=== PATIENT | male | born 1995 | race Caucasian/White ===

== ENCOUNTER 2021-07-17 11:07 | Emergency (ER) | payer OTHER, SELFPAY ==
[2021-07-17 11:45] VITALS: BP 124/86; PULSE 64; RESP 19; TEMP 36.9; O2SAT 99; BMI 23.7
--- NOTE | 2021-07-17 12:05 | HMH.EDUTC ---
[facility] [place] Disposition Clinical Impression: Psychiatric problem Disposition: Still a Patient Condition on Discharge: Fair Referrals: Provider,Referral, [Primary Care Provider] - Time of Disposition: 12:15 Medical Decision Making - Bk Inquiry Pt receiving controlled substance: No Bk was queried for this patient: No Vital Signs: 07/17/21 11:45 Temperature 98.5 F Temperature Source Oral Pulse Rate [Right Brachial] 64 Respiratory Rate 19 Blood Pressure [Right Arm] 124/86 Blood Pressure Mean [Right Arm] 98 Blood Pressure Source [Right Arm] Automatic Cuff Blood Pressure Position [Right Arm] Sitting 02 Sat by Pulse Oximetry 99 Oxygen Delivery Method Room Air Medical Decision Narrative: Mother concerned states that he has not been acting like himself Patient states that he is not sleeping and feels like his 'head is off States that he has been having thoughts of hurting himself and/or others but denies a plan and wants to get help Patient states that he feels like is brain is off and mother concerned that his medications are causing him to act like this Due to patient complaints and report of symptoms and thoughts patient to be moved to the ED for further evaluation Called ED spoke with Niharika Rn and patient was moved to room 9 [facility] [place] HPI - General Stated complaint: lack of sleep, anxiety, nausea Time Seen by Provider: 07/17/21 12:05 Mode of Arrival: Ambulatory Source of Information: Patient, Parent(s) Limitations: No Limitations Description of Symptoms (Recalled from Triage Doc. by RN): PATIENT C/O DEPRESSION, ANXIETY, DIFFICULTY SLEEPING, AND HEAD FEELING WEIRD X 1 YEAR, BUT IT HAS GOTTEN WORSE OVER THE PAST WEEK HEENT Symptoms (Recalled from RN notes): No Resp Symptoms (Recalled from RN notes): No Skin Symptoms (Recalled from RN notes): No MS Symptoms (Recalled from RN notes): No Functional Status (Recalled from RN notes): WNL - History of Present Illness Provider Complaint: Patient states that he is on leave from the [employer] [facility] State that he isnt feeling right in his head States that he is currently being treated for anxiety and depression State that he feels like his brain spasms at times States that he has not been sleeping and having thoughts of self harm and hurting others States that he just feels like his head is not right Mother state that he is not acting like his normal self and she thinks the medication is making him slower to respond to her than normal Patient states that symptoms have got worse over the last few days but he doesnt have any plans - Related Data Allergies Allergy/AdvReac Type Severity Reaction Status Date / Time chlorpheniramine Allergy Verified 07/17/21 12:05 [From Cardec (phenylephrin-chlorphn)] erythromycin base Allergy Verified 07/17/21 12:05 phenylephrine Allergy Verified 07/17/21 12:05 [From Cardec (phenylephrin-chlorphn)] - Worker's Comp Is this a Worker's Comp case?: No [facility] History - Hepatitis A Screen Attestation statement:: This patient has been screened for Hepatitis A risk factors. I have reviewed the patient's past medical history: Yes ROS Obtained: Yes All systems reviewed & no additional complaints, Yes Systems reviewed as appropriate & no additional complaints - Constitutional Constitutional: Reports system reviewed and no additional complaints, except as docu, Denies body ache, Denies chills, Denies fever(s), Denies headache(s) - Cardiovascular Cardiovascular: Reports system reviewed and no additional complaints, except as docu - Respiratory Respiratory: Reports system reviewed and no additional complaints, except as docu - Neurologic Neurologic: Reports system reviewed and no additional complaints, except as docu, Denies dizziness, Denies focal weakness, Denies headache(s), Denies seizure-like activity Comments: Patient reports head doesnt feel right worsening depression and having thoughts of self harm and/or
[2021-07-17 12:15] VITALS: BP 122/72; PULSE 56; RESP 16; O2SAT 100
--- NOTE | 2021-07-17 12:16 | HMH.EDANX ---
ED Disposition Clinical Impression: Psychiatric problem Disposition: Xfer Psychiatric Hosp Condition on Discharge: Fair Referrals: Provider,Referral, [Primary Care Provider] - - Critical Care Critical Care Time: No Attestation: On 07/17/21, the high probability of a clinically significant, sudden or life threatening deterioration of the following system(s) required my full and direct attention, intervention and personal management. The time I documented below is in addition to time spent performing reported procedures but includes the following listed in this critical care notation. Medical Decision Making - Medical Records Medical records reviewed: Yes: I reviewed the patient's medical records. - Bk Inquiry Pt receiving controlled substance: No Vital Signs: 07/17/21 11:45 07/17/21 12:15 07/17/21 12:19 Temperature 98.5 F 98.1 F Temperature Source Oral Oral Pulse Rate 56 L Pulse Rate [Right Brachial] 64 49 L Respiratory Rate 19 16 18 Blood Pressure 122/72 Blood Pressure [Right Arm] 124/86 122/72 Blood Pressure Mean [Right Arm] 98 88 Blood Pressure Source Blood Pressure Source [Right Arm] Automatic Cuff Automatic Cuff Blood Pressure Position Blood Pressure Position [Right Arm] Sitting Sitting 02 Sat by Pulse Oximetry 99 100 98 Oxygen Delivery Method Room Air Room Air Room Air 07/17/21 13:25 07/17/21 14:29 Temperature Temperature Source Pulse Rate 84 Pulse Rate [Right Brachial] 74 Respiratory Rate 16 16 Blood Pressure 122/70 Blood Pressure [Right Arm] 126/84 Blood Pressure Mean [Right Arm] 98 Blood Pressure Source Automatic Cuff Blood Pressure Source [Right Arm] Automatic Cuff Blood Pressure Position Sitting Blood Pressure Position [Right Arm] Sitting 02 Sat by Pulse Oximetry 98 100 Oxygen Delivery Method Room Air Room Air - Lab Data Lab results reviewed: Yes: I reviewed the patient's lab results. Lab Results 07/17/21 12:17: Urine Color Yellow, Urine Appearance Clear, Urine pH 7.5, Ur Specific [place] 1.010, Urine Protein Negative, Urine Glucose (UA) Negative, Urine Ketones Negative, Urine Blood Negative, Urine Nitrate Negative, Urine Bilirubin Negative, Urine Urobilinogen 0.2, Ur Leukocyte Esterase Negative, Urine RBC None, Urine WBC None, Ur Squamous Epith Cells None, Urine Bacteria None 07/17/21 12:40: WBC 4.7 L, RBC 5.05, Hgb 15.8, Hct 45.7, MCV 90.4, MCH 31.4 H, MCHC 34.7, RDW 13.4, Plt Count 205, MPV 8.0, Neut % (Auto) 59.4, Lymph % (Auto) 32.0, [place] % (Auto) 6.7, Eos % (Auto) 0.8, Baso % (Auto) 1.1, Neut # (Auto) 2.8, Lymph # (Auto) 1.5, [place] # (Auto) 0.3, Eos # (Auto) 0.0, Baso # (Auto) 0.1 07/17/21 12:40: Sodium 140, Potassium 4.2, Chloride 104, Carbon Dioxide 30, Anion Gap 10.2, BUN 14, Creatinine 1.10, Estimated Creat Clear 112, Estimated GFR 80, Est GFR ( Amer) 97, Glucose 98, Calcium 9.3, Total Bilirubin 0.8, AST 18, ALT 14, Alkaline Phosphatase 39, Total Protein 7.1, Albumin 4.3, Globulin 2.8, Albumin/Globulin Ratio 1.5 07/17/21 12:40: TSH 2.14, Free T4 Index 3.1 L, Thyroxine (T4) 8.7, T3 Uptake 36 07/17/21 15:48: Urine Opiates Screen Negative, Urine Methadone Screen Negative, Ur Barbituates Screen Negative, Ur Phencyclidine Scrn Negative, Ur Amphetamines Screen Negative, U Benzodiazepines Scrn Negative, Urine Cocaine Screen Negative, U Marijuana (THC) Screen Negative 07/17/21 16:59: SARS-CoV-2 (PCR) Not detected, Influenza A Untype (PCR) Not detected, Influenza Type B (PCR) Not detected Result diagrams: 07/17/21 12:40 07/17/21 12:40 Orders (Tests/Meds): ED MEDICATIONS Discontinued Medications Generic Name Dose Route Start Last Admin Trade Name Freq PRN Reason Stop Dose Admin Acetaminophen 500 mg 07/17/21 14:58 07/17/21 14:59 Acetaminophen 500mg Tab PO 07/17/21 14:59 500 mg ONCE ONE Administration - ECG Data Tracing #1 I reviewed this ECG and interpreted as documented below: The patient is EKG was performe
[2021-07-17 12:19] VITALS: BP 122/72; PULSE 49; RESP 18; TEMP 36.7; O2SAT 98; BMI 22.8
--- NOTE | 2021-07-17 12:45 | PC.NURSE ---
Calling Emerald Vidales. Voicemail left
--- NOTE | 2021-07-17 12:57 | ECG_ITS ---
APPROVED REPORT Exam: Resting ECG HR:49 bpm ECG Measurements Heart Rate 49 AXES IA 146 P 67 QRSd 102 QRS 91 QT 425 T 64 QTc 395 Conclusion SINUS BRADYCARDIA BORDERLINE RIGHT AXIS DEVIATION [QRS AXIS > 90] BORDERLINE ECG UNCONFIRMED REPORT Electronically signed by : Marco A Tom MD 07/18/2021 21:09:49
[2021-07-17 13:05] LABS: Basophils # 0.1 K/mm3 (0-0.2); Basophils % 1.1 % (0.1-2.0); Eosinophils % 0.8 % (0.1-12.0); Hematocrit 45.7 % (42.0-52.0); Hemoglobin 15.8 g/dL (14.1-18.0); Lymphocytes # 1.5 K/mm3 (0.7-4.5); Mean Corpuscular HGB Conc 34.7 g/dL (31.8-35.4); Mean Corpuscular Hemoglobin 31.4 pg (27.0-31.2); Mean Corpuscular Volume 90.4 fl (80-94); Monocytes # 0.3 K/mm3 (0.1-1.0); Monocytes % 6.7 % (1.7-9.3); Neutrophils # 2.8 K/mm3 (1.8-7.8); Neutrophils % 59.4 % (37.0-80.0); Platelet Count 205 K/mm3 (142-424); Red Blood Count 5.05 M/mm3 (4.60-6.20); Red Cell Distribution Width 13.4 % (11.5-17.5); White Blood Count 4.7 K/mm3 (4.8-10.8)
[2021-07-17 13:11] LABS: Alanine Aminotransferase 14 U/L (12-78); Albumin Level 4.3 g/dl (3.5-5.0); Albumin/Globulin Ratio 1.5 (1.1-1.8); Alkaline Phosphatase 39 U/L (38-126); Anion Gap 10.2 mEq/L (5-15); Aspartate Amino Transferase 18 U/L (17-59); Bilirubin,Total 0.8 mg/dl (0.2-1.3); Blood Urea Nitrogen 14 mg/dl (9-20); Calcium 9.3 mg/dl (8.4-10.2); Carbon Dioxide 30 mmol/L (22.0-30.0); Chloride 104 mmol/L (98-107); Creatinine Clearance Estimated 112 mL/min (50-200); Estimated Glomerular Filt Rate 80 ml/min (>60); GFR (African American) 97 ML/MIN (>60); Globulin 2.8 g/dL (1.3-3.2); Glucose 98 mg/dl (74-100); Potassium 4.2 mmoL/L (3.5-5.1); Sodium 140 mmol/L (136-145); Total Protein,Serum 7.1 g/dl (6.3-8.2)
--- NOTE | 2021-07-17 13:13 | PC.NURSE ---
Nurse called Emerald Thomas's office and no answer.
--- NOTE | 2021-07-17 13:19 | PC.NURSE ---
Spoke with Emerald Vidales, advised she would be down to see the patient later this afternoon. Spoke with pt and mother and let them know that she would be down later this afternoon if they were ok with waiting to see her. Both were agreeable with POC. Pt provided with drink at this time, no other needs.
[2021-07-17 13:25] VITALS: BP 126/84; PULSE 74; RESP 16; O2SAT 98
[2021-07-17 13:41] LABS: Triiodothryronine (T3) Uptake 36 % (23.5-40.5)
[2021-07-17 13:42] LABS: Free Thyroxine Index 3.1 ug/dL (5.93-13.13); T4 (Thyroxine) 8.7 ug/dl (5.53-11.0)
[2021-07-17 13:56] LABS: Thyroid Stimulating Hormone 2.14 uIU/mL (0.465-4.68)
[2021-07-17 14:29] VITALS: BP 122/70; PULSE 84; RESP 16; O2SAT 100
--- NOTE | 2021-07-17 14:29 | PC.NURSE ---
Rounded on patient at this time. No new needs. Pt up to restroom
--- NOTE | 2021-07-17 15:35 | PC.NURSE ---
Leslie called [facility] to check on status of Emerald coming down to see patient, advised they would give her the message
--- NOTE | 2021-07-17 15:42 | PC.NURSE ---
Updated pt and family member on POC
[2021-07-17 15:54] LABS: Microscopic, Urine URINE MICROSCOPIC (MICROSCOPIC)
[2021-07-17 15:57] LABS: Appearance,Urine CLEAR (Clear); Bilirubin,Urine Negative (Negative); Blood, Urine Negative (Negative); Color,Urine YELLOW (Yellow); Glucose,Urine (UA) Negative (Negative); Ketones,Urine Negative (Negative); Leukocyte Esterase,Urine Negative (Negative); Nitrate,Urine Negative (Negative); PH,Urine 7.5 (5.0-8.5); Protein,Urine Negative (Negative); Urobilinogen,Urine 0.2 EU/dl (0.2)
[2021-07-17 16:07] LABS: Benzodiazepines Screen,Urine Negative ng/ml (<200)
[2021-07-17 16:08] LABS: Amphetamine/Metha Screen,Urine Negative ng/ml (<1000)
[2021-07-17 16:09] LABS: Barbiturates Screen,Urine Negative ng/ml (<200); Cannabinoid Screen,Urine Negative ng/ml (<50)
[2021-07-17 16:10] LABS: Cocaine Screen,Urine Negative ng/ml (<300); Methadone Screen,Urine Negative ng/ml (<300)
[2021-07-17 16:11] LABS: Opiate Screen,Urine Negative ng/ml (<300)
[2021-07-17 16:12] LABS: Phencyclidine Screen,Urine Negative ng/ml (<25)
--- NOTE | 2021-07-17 16:16 | PC.NURSE ---
Emerald Vidales called to advises that she is coming to ED to consult with pt
--- NOTE | 2021-07-17 16:30 | PC.NURSE ---
Emerald Vidales at BS
--- NOTE | 2021-07-17 16:57 | PC.NURSE ---
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
--- NOTE | 2021-07-17 17:00 | HMH.BHCONS ---
*Admission Date: 07/17/21 *Reason for consult:: anxiety; negative thoughts *History of present illness: Consulted to the ER for anxiety and negative thoughts. -patient was interviewed in ER bay 9 -his mother was at the bedside with him She brought him to the [facility] today; cause he states that he doesn't feel right. -they sent him over to the ER -he states that he is here to 'get my head checked out' -that he has negative thoughts and they aren't right -this has happened to him before; the negative thoughts He is very flat. Emotionless. When responding to questions; he is very slow to respond. Looks at you as if looking right through you. Very guarded. Mom states that he has been like this for about the past 3 years. Started when there was issues with his marriage. -they have been for 3 years -she has moved on -he hasn't -they didn't not have kids -no contact with her currently He is currently in the . 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 07/26/2021 PER HIS REPORT: -he feels something is wrong with his brain -he wants an MRI -mom says they did this in [place] when he was there; and it was negative and cleared for anything medical -he says that his body hurts; and he just stays in [address] place all the time -he did not move the entire time in interview today -he has had negative thoughts for a while -sluggish to answer like this for a while; years mom says -he was in the hospital in [place] several times for his per mom's report -he was diagnosed as paranoid schizophrenia in [place] -no family history of this -he does have SI thoughts -most recent was today -he states that he wants to live; but not like this -that he is so tired of feeling like this -no plan earlier today -never attempted SI; never gathered things in preparation -He does CURRENTLY have homicidal thoughts -he does not want to talk about this -mom says that he has struggled with this before; when stationed in [place] -he would not answer if this was a specific person or just homicide in general -he does report auditory hallucinations -when asked what they say to him; again he answers that he 'can't talk about this' I did talk to him about going inpatient. -he states that he feels he needs to be in the hospital -he is willing to go -states that he knows he needs help -that the way he is feeling is not normal -mom agrees what this would be the best plan for him -instructed them that he will be going to [facility] RECOMMENDATIONS: 1. Petition to [facility] on a 72 hour old. 2. He can follow-up as an outpatient client in [facility] TIME IN: 1614 TIME OUT: 1644 [facility] History *Have you ever received a pneumonia vaccine?: No *Have you received a flu vaccine this season?: Yes - *Social History Smoking Status: Unknown if ever smoked Alcohol Intake: never *Occupational Status:: other (recently medically discharged from the [employer]) *Travel in the last 8 weeks: Inside the [facility] (He came back from [place] on 07/11/2021) Family Hx:: Unable to obtain Review of Systems - Review of Systems Review of systems:: other (did not assess) - *Neurologic Denies dizziness, Denies localized weakness, Denies headache(s), Denies seizure-like activity Meds Allergies Allergy/AdvReac Type Severity Reaction Status Date / Time chlorpheniramine Allergy Verified 07/17/21 12:05 [From Cardec (phenylephrin-chlorphn)] erythromycin base Allergy Verified 07/17/21 12:05 phenylephrine Allergy Verified 07/17/21 12:05 [From Cardec (phenylephrin-chlorphn)]
--- NOTE | 2021-07-17 17:03 | PC.NURSE ---
Spoke with Koby Brannon, who advised we could fill out the forms and email them to him. JOLEEN Be filling out forms at this time
[2021-07-17 17:05] LABS: Coronavirus 19, PCR Not Detected (NotDetected); Influenza A, PCR Not Detected (NotDetected); Influenza B, PCR Not Detected (NotDetected)
--- NOTE | 2021-07-17 17:21 | PC.NURSE ---
[phone] Filled out and email to [email or web address]
--- NOTE | 2021-07-17 17:47 | PC.NURSE ---
[facility] has been called about patient
--- NOTE | 2021-07-17 18:15 | PC.NURSE ---
Spoke to Officer Mercer with [employer] about transport to [facility] for pt. Due to pt being a [place] resident, he states that he believes SO will transport. Officer Mercer to return call with more information on who to expect to transport pt.
--- NOTE | 2021-07-17 18:26 | PC.NURSE ---
Received call from [employer] stating that [place] [facility] office will return our call to gain info on request to transport pt.
--- NOTE | 2021-07-17 18:30 | PC.NURSE ---
[facility] Christopher Webb stated that [facility] [place] [facility] will need to transport pt to [facility].
--- NOTE | 2021-07-17 18:32 | PC.NURSE ---
Officer Sylvie with [employer] returned call and stated that he will contact the [facility] to inform them of pt transport to [facility]. Advised that if he has any issues, he will return our call.
[2021-07-17 18:53] VITALS: BP 118/70; PULSE 50; RESP 14; TEMP 36.7; O2SAT 99
--- NOTE | 2021-07-17 18:58 | PC.NURSE ---
Pt D/C'd with [facility] in route to [facility]
== END 2021-07-17 18:58 ==
LOC: UTC 11:29 → ER 12:08
PROVIDERS: Emergency Provider Emergency Medicine
DX: F99 Mental disorder, not otherwise specified (principal); F41.9 Anxiety disorder, unspecified; G47.00 Insomnia, unspecified; Z88.8 Allergy status to other drugs, medicaments and biological substances
CPT/HCPCS: 80053; 80305; 81001; 84436; 84443; 84479; 85025; 93005; 99284; C9803; U0003; U0005

== ENCOUNTER 2023-10-29 15:29 | Emergency (ER) | payer OTHER, SELFPAY ==
[2023-10-29 15:40] VITALS: BP 126/74; PULSE 79; RESP 19; TEMP 36.8; O2SAT 100; BMI 29.0
--- NOTE | 2023-10-29 16:24 | ED_ITS ---
Discharge Plan Disposition Patient Disposition: Home, Self-Care Condition: Good Prescriptions Prescriptions: New amoxicillin 875 mg tablet 875 mg PO Q12H Qty: 20 0RF methylprednisolone 4 mg Tablets,Dose Pack 4 mg PO DIRECTED 6 Days Qty: 21 0RF Rx Instructions: Take 1 pack as directed for 6 days No Action olanzapine 5 mg Tablet 5 mg PO DAILY lorazepam 2 mg Tablet 4 mg PO DAILY PRN (Reason: Anxiety) Referrals Follow up/Referrals: Provider,Referral, MD [Primary Care Provider] - See instructions Activity Restrictions/Add. Instructions Additional Instructions/Restrictions: Drink plenty of fluids. Take tylenol or ibuprofen for pain or fever. Take the medications as directed. Follow up with your regular doctor. GO TO THE ER FOR ANY WORSENING SYMPTOMS Clinical Impressions Clinical Impression: Sinusitis, Acute viral syndrome Instructions Patient Instructions: Sinusitis, DI for Sinusitis Print Language Print Language: Ugandan Discharge ED Provider: Tone Escobedo [facility] General Stated complaint: sore throat,cough,congestion,runny nose Mode of Arrival: Ambulatory Source of Information: Patient Limitations: No Limitations Time Seen by Provider: 10/29/23 15:59 Description of Symptoms (Recalled from Triage Doc. by RN): PATIENT C/O FEVER, HEADACHE, SORE THROAT THIS MORNING, SINUS PAIN AND PRESSURE, AND RUNNY NOSE THAT STARTED YESTERDAY HEENT Symptoms (Recalled from RN notes): Yes Resp Symptoms (Recalled from RN notes): No Skin Symptoms (Recalled from RN notes): No MS Symptoms (Recalled from RN notes): No Functional Status (Recalled from RN notes): WNL Related Data Home Medications ?Medication ?Instructions ?Recorded ?Confirmed lorazepam 2 mg tablet 4 mg PO DAILY PRN Anxiety 10/29/23 10/29/23 olanzapine 5 mg tablet 5 mg PO DAILY 10/29/23 10/29/23 Previous Rx's ?Medication ?Instructions ?Recorded amoxicillin 875 mg tablet 875 mg PO Q12H #20 tabs 10/29/23 methylprednisolone 4 mg tablets in 4 mg PO DIRECTED 6 days #21 tabs 10/29/23 a dose pack Allergies Allergy/AdvReac Type Severity Reaction Status Date / Time chlorpheniramine Allergy Verified 07/17/21 12:05 [From Cardec (phenylephrin-chlorphn)] erythromycin base Allergy Verified 07/17/21 12:05 phenylephrine Allergy Verified 07/17/21 12:05 [From Cardec (phenylephrin-chlorphn)] Worker's Comp Is this a Worker's Comp case?: No [facility] Disclaimer: The information contained in this section may have been updated after the patient was seen, as this information can be updated by other users. Medical History (Updated 10/29/23 @ 16:34 by Tone Escobedo APRN) Depression Anxiety Surgical History (Updated 10/29/23 @ 15:55 by Lynsey Chirinos RN) History of tonsillectomy Social History Smoking Status: Unknown if ever smoked alcohol intake: never current occupational status: other (recently medically discharged from the [employer]) Travel in the last 8 weeks: Inside the [facility] (He came back from [place] on 07/11/2021) ROS Obtained: Yes All systems reviewed & no additional complaints except as documented Constitutional Constitutional: Reports poor appetite Eyes Eyes: Reports system reviewed and no additional complaints, except as documented ENT Ears, Nose, Mouth, and Throat: Reports as per HPI Cardiovascular Cardiovascular: Reports system reviewed and no additional complaints, except as documented and Denies chest pain Respiratory Respiratory: Denies shortness of breath, Denies chest congestion, Reports cough, Denies stridor and Denies wheezing Gastrointestinal Gastrointestingal: Reports system reviewed and no additional complaints, except as documented; Denies abdominal pain, diarrhea or vomiting Musculoskeletal Musculoskeletal: Reports system reviewed and no additional complaints, except as documented and Denies arthralgias Integumentary/Breasts Skin/Breast: Reports system reviewed and no additional complaints, except as documented and Denies rash Neurologic Neurologic: Denies paresthesias Allergic/Immunologic Allergic/Immunologic: Denies wheezing Physical Exam General General appearance: alert and in no apparent distress Eye Eye exam: Present normal appearance, PERRL and EOMI ENT ENT exam: Present mucous membranes moist and normal external ear exam Expanded ENT Exam External ear exam: Present normal external inspection TM/Canal exam: Bilateral TM: erythema and bulging Nose exam: Absent sinus tenderness Nasal speculum exam: Bilateral: normal Mouth exam: Present normal external inspection; Absent drooling Teeth exam: Present normal inspection Throat exam: Present tonsillar erythema and tonsillomegaly Neck Neck exam: Present normal inspection, full ROM and trachea midline; Absent tenderness, lymphadenopathy or thyromegaly Chest Chest inspection: Present normal inspection and symmetric chest wall rise; Absent tenderness or rash Respiratory Respiratory exam: Present normal lung sounds bilaterally; Absent respiratory distress, wheezes, stridor or accessory muscle use Cardiovascular Cardiovascular exam: Present regular rate, normal rhythm and normal heart sounds Abdominal Exam Abdominal exam: Present soft; Absent distention, tenderness, guarding, rebound or rigidity Extremities Exam Extremities exam: Present normal inspection, full ROM and normal capillary refill; Absent tenderness or calf tenderness Back Exam Back exam: Present normal inspection and full ROM; Absent tenderness Neurological Exam Neurological exam: Present alert and oriented X3 Psychiatric Psychiatric exam: Present normal affect and normal mood Skin Skin exam: Present warm, dry, intact and normal color Lymphatic Lymphatic Findings: no adenopathy Medical Decision Making Medical Records Medical records reviewed: No I reviewed the patient's medical records. Bk Inquiry Pt receiving controlled substance: No Vital Signs: 10/29/23 15:40 Temperature 98.3 F Temperature Source Oral Pulse Rate [Left Brachial] 79 Respiratory Rate 19 Blood Pressure [Left Arm] 126/74 Blood Pressure Mean [Left Arm] 91 Blood Pressure Source [Left Arm] Automatic Cuff Blood Pressure Position [Left Arm] Sitting 02 Sat by Pulse Oximetry 100 Oxygen Delivery Method Room Air
[2023-10-29 16:37] VITALS: BP 126/74; PULSE 79; RESP 19; TEMP 36.8; O2SAT 100
== END 2023-10-29 16:39 | disposition home or self-care (01) ==
PROVIDERS: Emergency Provider Nurse Practitioner Family
DX: U07.1 COVID-19 (principal); J01.90 Acute sinusitis, unspecified; R51.9 Headache, unspecified; R50.9 Fever, unspecified; R07.0 Pain in throat
CPT/HCPCS: 87635; 99204; 99212; G0463

== ENCOUNTER 2024-08-05 12:11 | Emergency (ER) | payer OTHER, SELFPAY ==
[2024-08-05 12:19] VITALS: BP 158/91; PULSE 75; RESP 20; TEMP 36.7; O2SAT 99; BMI 30.9
--- NOTE | 2024-08-05 12:28 | HMH.EDGENADL ---
Discharge Plan Disposition Patient Disposition: Home, Self-Care Prescriptions Prescriptions: No Action olanzapine 5 mg Tablet 5 mg PO DAILY lorazepam 2 mg Tablet 4 mg PO DAILY PRN (Reason: Anxiety) amoxicillin 875 mg tablet 875 mg PO Q12H Qty: 20 0RF methylprednisolone 4 mg Tablets,Dose Pack 4 mg PO DIRECTED 6 Days Qty: 21 0RF Rx Instructions: Take 1 pack as directed for 6 days Referrals Follow up/Referrals: Deric Mathews II, MD [Staff Physician, Gastroenterology] - See instructions Provider,ReferralMD [Primary Care Provider] - See instructions Clinical Impressions Clinical Impression: Abdominal pain Instructions Patient Instructions: Acute Abdominal Pain Print Language Print Language: Tunisian Discharge ED Provider: Aj Briggs General Adult HPI <Alana Sinha APRN - Last Filed: 08/06/24 12:08> General Chief complaint: Nausea/Vomiting/Diarrhea Stated complaint: vomiting daily 2mnths, nausea diarrhea Time Seen by Provider: 08/05/24 12:23 History of Present Illness HPI narrative: Roge Kapadia is a 29-year-old male who presents emergency room tonight with complaints of nausea, vomiting, diarrhea for 2 months. States his diarrhea has worsened over the last week. Reports that he has a mix of liquid and normal stools. Reports at least 3 bowel movements per day. Reports intermittent emesis, NBNB. Sometimes happens when he eats in the morning. Sometimes happens before he eats. Denies any marijuana or illicit drug use. Has never had an endoscopy or colonoscopy in the past. No history of diabetes or gastroparesis. Does state he has had some medication changes, states that he was taken off of his olanzapine recently. Does have an extensive psychiatric history, has been diagnosed with paranoid schizophrenia. Not reporting any hallucinations at this time. No SI or HI. Still has his gallbladder and appendix. No prior abdominal surgeries. States he wants to get his stomach checked out today . Denies any abdominal pain. No nausea or vomiting at this time. Does tell me that he thinks he had a fever last night took some Aleve for it. Has not had any vomiting today. Denies any chest pain, shortness of breath. No current complaints at this time. Please note that the above description of symptoms, and this electronic medical record under categorization of recalled from ER triage doctor by RN are reflective of an initial nursing assessment, however, is not reflective of my full history and physical exam that was personally taken and clarified. Consequentially, this proceeding description of symptoms, which may include the patient's cauterized chief complaint in the EMR, do not reflect my personal clinical impression, and the ultimate description of the history of present illness stated complaints should be deferred to this section of this note. Unless stated otherwise were congruent with the section of the note, additional signs, symptoms, or incongruence can be interpreted as in or accurate with my clinical impression. Related Data Home Medications ?Medication ?Instructions ?Recorded ?Confirmed lorazepam 2 mg tablet 4 mg PO DAILY PRN Anxiety 10/29/23 10/29/23 olanzapine 5 mg tablet 5 mg PO DAILY 10/29/23 10/29/23 Previous Rx's ?Medication ?Instructions ?Recorded amoxicillin 875 mg tablet 875 mg PO Q12H #20 tabs 10/29/23 methylprednisolone 4 mg tablets in 4 mg PO DIRECTED 6 days #21 tabs 10/29/23 a dose pack Allergies Allergy/AdvReac Type Severity Reaction Status Date / Time chlorpheniramine (From Allergy Verified 07/17/21 12:05 Cardec (phenylephrin-chlorphn)) erythromycin base Allergy Verified 07/17/21 12:05 phenylephrine (From Cardec Allergy Verified 07/17/21 12:05 (phenylephrin-chlorphn)) [facility] <Alana Sinha APRN - Last Filed: 08/06/24 12:08> [facility] Disclaimer: The information contained in this section may have been updated after the patient was seen, as this information can be updated by other users. Medical History (Updated 08/05/24 @ 13:46 by Catalino Levin RN) Depression Anxiety Surgical History (Updated 10/29/23 @ 15:55 by Lynsey Chirinos RN) History of tonsillectomy Social History Smoking Status: Current every day smoker alcohol intake: never current occupational status: other (recently medically discharged from the [employer]) Travel in the last 8 weeks?: Inside the [facility] (He came back from [place] on 07/11/2021) Have you lived/traveled outside US in past 30 days?: No Contact w/someone who lives/traveled outside US past 30 days?: No Exposure to someone with infectious disease in past 14 days?: No Do you have a fever (greater than 100.4 F or 38 C)?: No Have you tested positive for COVID-19?: No Exposed to someone with COVID-19 in past 14 days?: No Do you have a sore throat?: No Do you have a cough?: No Do you have any weakness?: No Do you have any diarrhea?: Yes Are you experiencing any unusual bleeding?: No Do you have any muscle aches/pain?: No Do you have any abdominal pain?: No Are you experiencing loss of taste or smell?: No Other Medical History Have you received the Flu Vaccine for this season: Yes Have you received the Pneumonia Vaccine: No <Alana Sinha PREPARATION ROOM MANAGER - Last Filed: 08/06/24 12:08> ROS Obtained: Yes Systems reviewed as appropriate & no additional complaints except as documented Physical Exam <Alana Sinha PREPARATION ROOM MANAGER - Last Filed: 08/06/24 12:08> General General appearance: alert and in no apparent distress Head Head exam: atraumatic and normocephalic Eye Eye exam: Present PERRL (Pupils are very dilated, equal round reactive) and EOMI Chest Chest inspection: Present symmetric chest wall rise Respiratory Respiratory exam: Present normal lung sounds bilaterally Cardiovascular Cardiovascular exam: Present regular rate and normal rhythm Abdominal Exam Abdominal exam: Present soft and normal bowel sounds; Absent tenderness Extremities Exam Extremities exam: Present full ROM Neurological Exam Neurological exam: Present alert and oriented X3 Skin Skin exam: Present warm, dry and intact Medical Decision Making <Alana Sinha PREPARATION ROOM MANAGER - Last Filed: 08/06/24 12:08> Medical Records Screening: Per USPSTF and CDC recommendations, given the prevalence of disease in our region, it is our hospital?s policy to screen for HIV and viral Hepatitis for all patients aged 18 and over and those with ongoing risk factors. Bk Inquiry Pt receiving controlled substance: No Vital Signs: 08/05/24 12:19 08/05/24 13:43 Temperature 98.1 F 98.2 F Temperature Source Oral Pulse Rate 76 Pulse Rate [Left] 75 Respiratory Rate 20 18 Blood Pressure 156/91 H Blood Pressure [Right Arm] 158/91 H Blood Pressure Mean [Right Arm] 113 Blood Pressure Source Automatic Cuff Blood Pressure Source [Right Arm] Automatic Cuff Blood Pressure Position Sitting Blood Pressure Position [Right Arm] Sitting 02 Sat by Pulse Oximetry 99 Oxygen Delivery Method Room Air Room Air Lab Data Lab Results 08/05/24 12:25: WBC 5.4, RBC 5.48, Hgb 15.9, Hct 47.6, MCV 86.9, MCH 29.0, MCHC 33.4, RDW 12.1, Plt Count 245, MPV 9.3, Neut % (Auto) 66.6, Lymph % (Auto) 24.9, [place] % (Auto) 7.3, Eos % (Auto) 0.4, Baso % (Auto) 0.6, Neut # (Auto) 3.6, Lymph # (Auto) 1.3, [place] # (Auto) 0.4, Eos # (Auto) 0.0, Baso # (Auto) 0.0, Sodium 140, Potassium 4.3, Chloride 104, Carbon Dioxide 29, Anion Gap 11.3, BUN 15, Creatinine 1.20, Estimated GFR 71, Est GFR ( Amer) 86, Glucose 113 H, Calcium 9.4, Total Bilirubin 0.7, AST 28, ALT 39, Alkaline Phosphatase 61, Total Protein 8.1, Albumin 4.7, Globulin 3.4 H, Albumin/Globulin Ratio 1.4, Lipase 46, HCV Ab NERIS w/Rflx PCR Qn Negative, HIV Ag/Ab Combo Qual Negative 08/05/24 13:28: Urine Color Yellow, Urine Appearance Clear, Urine pH 7.0, Ur Specific [place] 1.010, Urine Protein Negative, Urine Glucose (UA) Negative, Urine Ketones Negative, Urine Blood Negative, Urine Nitrate Negative, Urine Bilirubin Negative, Urine Urobilinogen 0.2, Ur Leukocyte Esterase Negative, Urine RBC None, Urine WBC None, Ur Squamous Epith Cells None, Urine Bacteria Trace, Urine Opiates Screen Negative, Urine Methadone Screen Negative, Ur Barbituates Screen Negative, Ur Phencyclidine Scrn Negative, Ur Amphetamines Screen Negative, U Benzodiazepines Scrn Negative, Urine Cocaine Screen Negative, U Marijuana (THC) Screen Negative 08/05/24 12:25 08/05/24 12:25 Orders (Tests/Meds): ORDERS Category Date Time Status CBC w/Auto Diff [Complete Blood Count Auto Diff] Stat Lab 08/05/24 12:25 Completed CMP [Comprehensive Metabolic Panel] Stat Lab 08/05/24 12:25 Completed HIV Combo Stat Lab 08/05/24 12:25 Completed Hepatitis C Ab Qual. W/ RFX Stat Lab 08/05/24 12:25 Completed Lipase Stat Lab 08/05/24 12:25 Completed UA [Urinalysis and Microscopic] Stat Lab 08/05/24 13:28 Completed UDS [Drug Screen,Urine] Stat Lab 08/05/24 13:28 Completed Medical Decision Narrative: In summary patient is an 29-year-old male who presents emergency department for evaluation of nausea, vomiting, diarrhea x 2 months. Patient not currently nauseated, no abdominal pain at this time. Has not had a bowel movement today, no episodes of vomiting today. Patient is hemodynamically stable upon arrival, afebrile. Unremarkable physical exam, no tenderness to palpation on his abdomen pupils are very dilated, equal round and reactive. Differential diagnosis includes enteritis versus appendicitis versus pancreatitis. Initial workup will be conducted with hematologic labs including a CBC, CMP, lipase. I considered ordering a CT of the abdomen but patient does not have any abdominal pain at this time. Will reassess the need for CT of the abdomen once lab work comes back.. Initial interventions include will give p.o. challenge once lab work comes back. Patient currently not nauseated at this time, not requiring any antiemetics. Initial workup reviewed by me hematologic labs essentially unremarkable. Urinalysis and UDS unremarkable. Upon repeat evaluation patient continued to be pain-free, had no nausea, no episodes of vomiting, no diarrhea at this time.. Given this, patient is appropriate for discharge. I will give him a follow-up referral to see her GI specialist Dr. Mathews. Patient was given strict return precautions to return to the ER should his condition worsen. <Aj Briggs MD - Last Filed: 08/14/24 23:04> Vital Signs: 08/05/24 12:19 08/05/24 13:43 Temperature 98.1 F 98.2 F Temperature Source Oral Pulse Rate 76 Pulse Rate [Left] 75 Respiratory Rate 20 18 Blood Pressure 156/91 H Blood Pressure [Right Arm] 158/91 H Blood Pressure Mean [Right Arm] 113 Blood Pressure Source Automatic Cuff Blood Pressure Source [Right Arm] Automatic Cuff Blood Pressure Position Sitting Blood Pressure Position [Right Arm] Sitting 02 Sat by Pulse Oximetry 99 Oxygen Delivery Method Room Air Room Air Lab Data Lab Results 08/05/24 12:25: WBC 5.4, RBC 5.48, Hgb 15.9, Hct 47.6, MCV 86.9, MCH 29.0, MCHC 33.4, RDW 12.1, Plt Count 245, MPV 9.3, Neut % (Auto) 66.6, Lymph % (Auto) 24.9, [place] % (Auto) 7.3, Eos % (Auto) 0.4, Baso % (Auto) 0.6, Neut # (Auto) 3.6, Lymph # (Auto) 1.3, [place] # (Auto) 0.4, Eos # (Auto) 0.0, Baso # (Auto) 0.0, Sodium 140, Potassium 4.3, Chloride 104, Carbon Dioxide 29, Anion Gap 11.3, BUN 15, Creatinine 1.20, Estimated GFR 71, Est GFR ( Amer) 86, Glucose 113 H, Calcium 9.4, Total Bilirubin 0.7, AST 28, ALT 39, Alkaline Phosphatase 61, Total Protein 8.1, Albumin 4.7, Globulin 3.4 H, Albumin/Globulin Ratio 1.4, Lipase 46, HCV Ab NERIS w/Rflx PCR Qn Negative, HIV Ag/Ab Combo Qual Negative 08/05/24 13:28: Urine Color Yellow, Urine Appearance Clear, Urine pH 7.0, Ur Specific [place] 1.010, Urine Protein Negative, Urine Glucose (UA) Negative, Urine Ketones Negative, Urine Blood Negative, Urine Nitrate Negative, Urine Bilirubin Negative, Urine Urobilinogen 0.2, Ur Leukocyte Esterase Negative, Urine RBC None, Urine WBC None, Ur Squamous Epith Cells None, Urine Bacteria Trace, Urine Opiates Screen Negative, Urine Methadone Screen Negative, Ur Barbituates Screen Negative, Ur Phencyclidine Scrn Negative, Ur Amphetamines Screen Negative, U Benzodiazepines Scrn Negative, Urine Cocaine Screen Negative, U Marijuana (THC) Screen Negative Orders (Tests/Meds): ORDERS Category Date Time Status CBC w/Auto Diff [Complete Blood Count Auto Diff] Stat Lab 08/05/24 12:25 Completed CMP [Comprehensive Metabolic Panel] Stat Lab 08/05/24 12:25 Completed HIV Combo Stat Lab 08/05/24 12:25 Completed Hepatitis C Ab Qual. W/ RFX Stat Lab 08/05/24 12:25 Completed Lipase Stat Lab 08/05/24 12:25 Completed UA [Urinalysis and Microscopic] Stat Lab 08/05/24 13:28 Completed UDS [Drug Screen,Urine] Stat Lab 08/05/24 13:28 Completed Medical Decision Narrative: In summary patient is an 29-year-old male who presents emergency department for evaluation of nausea, vomiting, diarrhea x 2 months. Patient not currently nauseated, no abdominal pain at this time. Has not had a bowel movement today, no episodes of vomiting today. Patient is hemodynamically stable upon arrival, afebrile. Unremarkable physical exam, no tenderness to palpation on his abdomen pupils are very dilated, equal round and reactive. Differential diagnosis includes enteritis versus appendicitis versus pancreatitis. Initial workup will be conducted with hematologic labs including a CBC, CMP, lipase. I considered ordering a CT of the abdomen but patient does not have any abdominal pain at this time. Will reassess the need for CT of the abdomen once lab work comes back.. Initial interventions include will give p.o. challenge once lab work comes back. Patient currently not nauseated at this time, not requiring any antiemetics. Initial workup reviewed by me hematologic labs essentially unremarkable. Urinalysis and UDS unremarkable. Upon repeat evaluation patient continued to be pain-free, had no nausea, no episodes of vomiting, no diarrhea at this time.. Given this, patient is appropriate for discharge. I will give him a follow-up referral to see her GI specialist Dr. Mathews. Patient was given strict return precautions to return to the ER should his condition worsen. I was consulted by the [facility], and we discussed the complexity of the problems being addressed. I approved the treatment and management plan for this patient's care in the Emergency Department, thus performing a substantive portion of the medical decision making. Aj Briggs MD Critical Care <Alana Sinha APRN - Last Filed: 08/06/24 12:08> Critical Care Time Critical Care Time: No
[2024-08-05 12:35] LABS: Basophils % 0.6 % (0.1-2.0); Eosinophils % 0.4 % (0.1-12.0); Hematocrit 47.6 % (42.0-52.0); Hemoglobin 15.9 g/dL (14.1-18.0); Immature Granulocytes # 0.01 10^3uL; Immature Granulocytes % 0.2 %; Lymphocytes # 1.3 K/mm3 (0.7-4.5); Lymphocytes % 24.9 % (10-50); Mean Corpuscular HGB Conc 33.4 g/dL (31.8-35.4); Mean Corpuscular Volume 86.9 fl (80-94); Mean Platelet Volume 9.3 fl (7.4-10.4); Monocytes # 0.4 K/mm3 (0.1-1.0); Monocytes % 7.3 % (1.7-9.3); Neutrophils # 3.6 K/mm3 (1.8-7.8); Neutrophils % 66.6 % (37.0-80.0); Nucleated Red Blood Cells # 0 10^3/uL; Nucleated Red Blood Cells % 0 %; Platelet Count 245 K/mm3 (142-424); Red Blood Count 5.48 M/mm3 (4.60-6.20); Red Cell Distribution Width 12.1 % (11.5-17.5); Red Cell Distribution Width-SD 38.7 fL; White Blood Count 5.4 K/mm3 (4.8-10.8)
[2024-08-05 12:45] LABS: Albumin Level 4.7 g/dl (3.5-5.0); Chloride 104 mmol/L (98-107); Sodium 140 mmol/L (136-145)
[2024-08-05 12:46] LABS: Potassium 4.3 mmoL/L (3.5-5.1)
[2024-08-05 12:48] LABS: Alanine Aminotransferase 39 U/L (12-78); Albumin/Globulin Ratio 1.4 (1.1-1.8); Alkaline Phosphatase 61 U/L (38-126); Anion Gap 11.3 mEq/L (5-15); Aspartate Amino Transferase 28 U/L (17-59); Bilirubin,Total 0.7 mg/dl (0.2-1.3); Blood Urea Nitrogen 15 mg/dl (9-20); Carbon Dioxide 29 mmol/L (22.0-30.0); Estimated Glomerular Filt Rate 71 ml/min (>60); GFR (African American) 86 ML/MIN (>60); Globulin 3.4 g/dL (1.3-3.2); Total Protein,Serum 8.1 g/dl (6.3-8.2)
[2024-08-05 12:49] LABS: Calcium 9.4 mg/dl (8.4-10.2); Glucose 113 mg/dl (74-100); Lipase 46 U/L (23-300)
[2024-08-05 13:32] LABS: Microscopic, Urine URINE MICROSCOPIC (MICROSCOPIC)
[2024-08-05 13:38] LABS: Appearance,Urine CLEAR (Clear); Bilirubin,Urine Negative (Negative); Blood, Urine Negative (Negative); Color,Urine YELLOW (Yellow); Glucose,Urine (UA) Negative (Negative); Ketones,Urine Negative (Negative); Leukocyte Esterase,Urine Negative (Negative); Nitrate,Urine Negative (Negative); Protein,Urine Negative (Negative); Urobilinogen,Urine 0.2 EU/dl (0.2)
[2024-08-05 13:43] VITALS: BP 156/91; PULSE 76; RESP 18; TEMP 36.8; O2SAT 97
[2024-08-05 13:50] LABS: Bacteria,Urine Trace /lpf
[2024-08-05 13:52] LABS: Barbiturates Screen,Urine Negative ng/ml (<200)
[2024-08-05 13:53] LABS: Amphetamine/Metha Screen,Urine Negative ng/ml (<1000); Benzodiazepines Screen,Urine Negative ng/ml (<200)
[2024-08-05 13:54] LABS: Methadone Screen,Urine Negative ng/ml (<300)
[2024-08-05 13:55] LABS: Cannabinoid Screen,Urine Negative ng/ml (<50); Cocaine Screen,Urine Negative ng/ml (<300)
[2024-08-05 13:56] LABS: Opiate Screen,Urine Negative ng/ml (<300); Phencyclidine Screen,Urine Negative ng/ml (<25)
[2024-08-05 21:26] LABS: HIV Combo NEGATIVE (Negative)
[2024-08-05 21:34] LABS: Hepatitis C Ab Qual. W/ RFX NEGATIVE (Negative)
== END 2024-08-05 13:51 | disposition home or self-care (01) ==
PROVIDERS: Nurse Practitioner Acute Care; Emergency Provider Emergency Medicine
DX: R10.9 Unspecified abdominal pain (principal); Z11.59 Encounter for screening for other viral diseases; Z11.4 Encounter for screening for human immunodeficiency virus [HIV]
CPT/HCPCS: 80053; 80307; 81001; 83690; 85025; 86803; 87389; 99283

== ENCOUNTER 2024-12-19 14:52 | Emergency (ER) | payer OTHER, SELFPAY ==
[2024-12-19 14:54] VITALS: BP 186/118; PULSE 81; RESP 18; TEMP 36.8; O2SAT 100; BMI 31.6
--- OUTSIDE RECORDS SUMMARY | 2024-12-19 15:15 | XMS_ITS | Data Portability ---
Author Organization [place] [place] [facility] Address [address] [place] [address] Assessment No assessment recorded. Plan of Treatment Reminders Order Date Submit Date Provider Last Modified By Organization Details Last Modified Time Details Appointments None recorded. Lab None recorded. Referral None recorded. Procedures None recorded. Surgeries None recorded. Imaging None recorded. Medication Orders Ozempic 0.25 mg or 0.5 mg (2 mg/1.5 mL) subcutaneou s pen injector 2024 025 [facility], [address] [place] [address], [address], 15:56:10 Lybalvi 15 mg-10 mg tablet 2024 025 [facility], [address] [place] [address], [address], 16:52:11 naltrexone 50 mg tablet 2024 025 [facility], [address] [place] [address], [address], 16:17:43 Patient TargetsNo targets recorded. Patient Instructions Encounter Date Encounter Id Patient Instructions Last Modified By Organization Details Last Modified Time 08/27/2024 [id number] MHI Packet Adult [email or web address] Not availabl e 08/27/2024 12:46:14 Reason for Referral None Reported. Problems Name Problem SNOMED Code Status Onset Date Resolution Date Notes Provider Name and Address Organization Details Recorded Time Schizophrenic disorders 252773473 Active 2024 Sees [place] for this Bernice moore [employer] 5 11:28:31 Anxiety 48414258 Active 2024 [facility] SAMIA Griffiths [employer] 5 11:28:44 Recurrent major depressive episodes 829377014 Active 2024 Sees [place] for [place] Bernice moore [employer] 11:29:17 Problem Notes None recorded. Procedures Surgical History Date Name Laterality Status Provider Name and Address Organization Details Recorded Time Tonsillectomy completed Bernice GRACIA [employer], [employer] 08/27/2024 11:08:12 Imaging Results None recorded. Procedure Notes None recorded. Medical Equipment None Reported. Allergies No known drug allergies Medications Name Sig Start Date Stop Date Status Note LastModified by Organization Details LastModified Time citalopram 10 mg tablet Take 1 tablet every day by oral route. active pt is unsure on doseage , [facility] Not [facility] Not Available Not Available naltrexone 50 mg tablet TAKE ONE TABLET BY MOUTH TWICE DAILY active Not Available Not Available No t Available olanzapine 10 mg tablet Take 1 tablet every day by oral route. active pt is unsure on doseage , gets from [facility] Not Available Not Available Not Available amoxicilli n 875 mg tablet TAKE 1 TABLET BY MOUTH EVERY 12 HOURS FOR 10 DAYS 08/27 completed Not Available Not Available Not Available lorazepam 1 mg tablet Take 1 tablet 3 times a day by oral route. active pt is unsure on doseage , gets [facility] Not Available Not Available Not Available methylpred nisolone 4 mg tablets in a dose pack TAKE BY MOUTH DIRECTED ON INSIDE OF PACKAGE 08/27 completed Not Available Not Available Not Available Prilosec OTC 20 mg tablet,del ayed release Take 1 tablet every day by oral route. active Not Available Not Available No t Available Ozempic 0.25 mg or 0.5 mg (2 mg/1.5 mL) subcutaneo us pen injector inject 0.25mg SQ q week x4 weeks, then inject 0.5mg SQ q week 2024 active Not Available Not Available Not Avai lable Lybalvi 15 mg-10 mg tablet TAKE ONE TABLET BY MOUTH EVERY DAY 11/17 completed Not Available Not Available Not Available Ozempic 0.25 mg or 0.5 mg (2 mg/3 mL) subcutaneo us pen injector Inject by subcutan eous route for 56 days. active Not Available Not Available No t Available Cobenfy 100 mg-20 mg capsule TAKE 1 CAPSULE BY MOUTH TWICE DAILY 08/27 completed Not Available Not Available Not Available Cobenfy 50 mg-20 mg capsule TAKE 1 CAPSULE BY MOUTH TWICE DAILY 08/27 completed Not Available Not Available Not Available Vitals Date Recorded Body height Body mass index (BMI) Body weight Heart rate Oxygen saturation Oxygen saturation in Arterial blood by Pulse oximetry Systolic And Diastolic Provider Name and Address Organization Details Last Updated DateTime 185.42 cm 31.4 kg/m2 347095. 08 g 70 /min 97 % 97 % 134/88 mm[Hg] Bernice Dalton [employer] 11:32:26 Date Recorded Body height Body mass index (BMI) Body weight Heart rate Oxygen saturation Oxygen saturation in Arterial blood by Pulse oximetry Systolic And Diastolic Provider Name and Address Organization Details Last Updated DateTime 185.42 cm 33 kg/m2 559117. 49 g 80 /min 96 % 96 % 133/88 mm[Hg] Bernice Dalton [employer] 16:06:30 Social History Question Answer Notes LastModified by Organizat ion Details LastModified Time Tobacco Smoking Status Former Smoker Bernice moore [employer]. 08/27/2024 11:08:12 Do You Have An Advance Directive? No Information not available 08/27/2024 Is Your Home Air Conditioned? Yes Information not available 08/27/2024 Do You Wear A Helmet When Biking? No Information not available 08/27/2024 Are You Blind Or Do You Have Difficulty Seeing? No Information not available 08/27/2024 What Is Your Level Of Caffeine Consumption? Moderate Information not available 08/27/2024 What Type Of Academic Affairs Assistant Do You Use? None Information not available 08/27/2024 Are You Deaf Or Do You Have Serious Difficulty Hearing? No Information not available 08/27/2024 How Many Days Of Moderate To Strenuous Exercise, Like A Brisk Walk, Did You Do In The Last 7 Days? 3 Information not available 08/27/2024 Have There Been Any Changes To Your Family Or Social Situation? No Information no t available 08/27/2024 When Did You Quit Smoking? 1-5yearssince lastcigarette Information not available 08/27/2024 Are There Any Guns Present In Your Home? No Information not available 08/27/2024 Which Of Your Hands Is Dominant? Right Information not available 08/27/2024 What Is Your Home Situation? Both Parents Information not available 08/27/2024 Do You Have A Medical Power Of Shotgun Shell Loading Machine Operator? No Information not available 08/27/2024 What Was The Date Of Your Most Recent Tobacco Screening? 11/17/2024 Information not available 11/17/2024 What Is Your Current Pack Years? 10packyears Information not available 08/27/2024 Do You Have Any Pets? Yes Information not available 08/27/2024 What Is Your Relationship Status? Information not available 08/27/2024 Have You Repeated Any Grades? Yes Information not available 08/27/2024 Do You Use Your Seat Belt Or Car Seat Routinely? Yes Information not available 08/27/2024 Are You Sexually Active? No Information not available 08/27/2024 Do You Have Any Siblings? Two Information not available 08/27/2024 Do You Have Smoke And Carbon Monoxide Detectors In Your Home? Yes Information not available 08/27/2024 Are You Passively Exposed To Smoke? No Information no t available 08/27/2024 Are There Any Smokers In Your House? No Information not available 08/27/2024 How Much Tobacco Do You Smoke? No Information not available 08/27/2024 Do You Use Sunscreen Routinely? No Information not available 08/27/2024 Do You Have Difficulty Walking Or Climbing Stairs? No Information not available 08/27/2024 Sex: Unknown Functional Status Question Answer Note LastModified by Organizat ion Details LastModified Time How many times per week do you consume alcohol? 5-7 times per week Information not available 08/27/2024 Do you use any illicit or recreational drugs? No Information not available 08/27/2024 What is your level of alcohol consumption? Heavy Information not available 08/27/2024 Are you currently employed? No Information not available 08/27/2024 Are you able to walk independently without assistance or assistive devices? YESWOREST Information not available 08/27/2024 Do you have difficulty doing errands alone? No Information not available 08/27/2024 Are you able to care for yourself independently? Yes Information not available 08/27/2024 Do you have difficulty dressing, bathing, grooming, or toileting? No Information not available 08/27/2024 What is your exercise level? Occasional Information not available 08/27/2024 Mental Status Question Answer Note LastModified by Organization D etails LastModified Time Do you have difficulty concentrating, remembering or making decisions? No Information no t available 08/27/2024 Are you or have you been involved with bullying? No Information not available 08/27/2024 Family History Nothing Reported. Medical History Condition Response Depression Y Anxiety Disorder Y Immunizations Vaccine Type Date Status Note Provider Nam e and Address Organization Details Recorded Time MMR 6 completed Not Available [facility] 11/17/2024 15:59:51 DTP-Hib 6 completed Not Available [facility] 11/17/2024 15:59:51 Hep B, unspecified formulation 6 completed Not Available [facility] 11/17/2024 15:59:51 varicella 7 completed Not Available [facility] 11/17/2024 15:59:51 DTaP, unspecified formulation 9 completed Not Available [facility] 11/17/2024 15:59:51 MMR 9 completed Not Available [facility] 11/17/2024 15:59:51 OPV, trivalent 9 completed Not Available [facility] 11/17/2024 15:59:51 Tdap 7 completed Not Available [facility] 11/17/2024 15:59:51 COVID-19, mRNA, LNP-S, PF, 100 mcg/0.5mL dose or 50 mcg/0.25mL dose 2 completed Not Available [facility] 11/17/2024 15:59:51 Influenza, MDCK, quadrivalent, PF 2 completed Not Available [facility] 11/17/2024 15:59:51 Influenza, split virus, quadrivalent, PF 3 completed Not Available [facility] 11/17/2024 15:59:51 Past Encounters Encounter ID Performer Location Encounter Start Date Encounter Closed Date Diagnosis/Indication Diagnosis SNOMED-CT Code Diagnosis ICD10 Code Diagnosis IMO Codes Diagnosis Note [id number] [place] [address] 08/27/2024 11:05:42 08/27/2024 12:21:06 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 F10.10 50447 Auditory hallucinations 21731570 R44.0 21723 Gastroesop hageal reflux disease without esophagitis 636970345 K21.9 444376 Body mass index 30+ - obesity 252048680 Z68.31 294766 [id number] Violette Vila[address] 0 11/17/2024 15:58:57 11/17/2024 17:09:05 Obesity 381952427 E66.9 74480900 Harmful pa ttern of use of alcohol 71071378 F10.10 55223 Body mass index 30+ - obesity 229971204 Z68.33 088230 Health Concerns Section Related Observation LastModified by Organization Detai ls LastModified Time None Recorded Concern Status LastModified by Organization Details LastModified Time None Recorded Advance Directives Directive N: Payers Insurance Date Sequence Insurance Name Policy Number Policy Pereyra Covered Member ID Pereyra Member ID Guarantor Name 11/18/2024 1 FOR LIFE () Roge Kapadia [id number] Roge Kapadia 08/27/2024 1 *SELF PAY* Ramon Kapadia Notes Date Note Type Note Provider Name and Address Organization Details Recorded Time 08/27/2024 text/html pt here today to est pcp. pt [facility]. states that he would like to get treatment for ETOH abuse. states that he has been drinking at least 6 beers/day for years. states that he also hears voices . states that he doesnt hear them daily but he has for years. states that he heard them before he started drinking. denies being prescribed any medication as a child or teenager for this. pt states that the voices tell him to hurt himself or other people. pt states that he has never acted on these voices. pt states that he still hears the voices even with the medication and that it hasnt gotten better. states that he has been taking the olanzapine for around 2 years and the voices hasnt gotten better. states that the only med that helps him is the lorazepam. talked with dr martel and she suggested to start pt on lybalvi 15mg and stop the olanzapine. pt does not want the shot for ETOH abuse but the oral. naltrexone 50 bid. start the lybalvi first then wait a couple days to start naltrexone. spoke with deshawn in pharmacy. pt to return in 1 month. pt is to bring back MHI packet when he picks up his meds. Violette Vila APRN [address] [facility], [place], [address], [facility] [employer] 08/27/2024 13:01:37 11/17/2024 text/html pt here today requesting ozempic to help with wt loss. pt states that he has been trying to diet and exercise. states that he has been drinking alot of water. i explained to pt that insurance typically doesnt approve those type of medications unless pt is a diabetic. pt voiced understanding. told pt that it may be a good idea to draw labs and check labwork. pt declined today and states i know i dont have diabetes because i dont eat sugar . i told pt that i can try and send it in but it is probably going to be denied. pt voiced understanding. i asked pt if he is still taking the naltrexone because he didnt come back for his 1 month f/u. pt states that he is not still taking it, that he is now taking [facility] states that [facility] not [facility] (pt did not ever bring back MHI packet) and states that he still continues to drink ETOH daily. pt is very solium, hands have a tremor, takes a while for pt to answer questions. Violette Vila APRN [address] [place] [address], [place], [address], [facility] [employer] 11/17/2024 16:46:32
--- OUTSIDE RECORDS SUMMARY | 2024-12-19 15:15 | XMS_ITS | Continuity of Care Document ---
Author Organization [employer] [facility] Address [address] [place] [id number] Assessment No assessment recorded. Plan of Treatment Reminders Order Date Submit Date Provider Last Modified By Organization Details Last Modified Time Details Appointments None recorded. Lab None recorded. Referral None recorded. Procedures None recorded. Surgeries None recorded. Imaging None recorded. Medication Orders Ozempic 0.25 mg or 0.5 mg (2 mg/1.5 mL) subcutaneou s pen injector 2024 025 [facility], [address] [place] [address], [address], 15:56:10 Patient TargetsNo targets recorded. Patient InstructionsNo instructions recorded. Reason for Referral None Reported. Problems Name Problem SNOMED Code Status Onset Date Resolution Date Notes Provider Name and Address Organization Details Recorded Time Schizophrenic disorders 759794743 [facility]24 [facility] Bernice Thompsony oscar [employer] 11:28:31 Anxiety 98732710 Active 2024 [facility] Bernice Irene [employer], [employer] 11:28:44 Recurrent major depressive episodes 739541869 Active 2024 [facility] Bernice Ellsworthallie moore [employer] 11:29:17 Problem Notes None recorded. Procedures Surgical History Date Name Laterality Status Provider Name and Address Organization Details Recorded Time Tonsillectomy completed Bernicecally Dalton [employer], [facility] 08/27/2024 11:08:12 Imaging Results None recorded. Procedure [...] Last Updated DateTime 185.42 cm 33 kg/m2 309306. 49 g 80 /min 96 % 96 % 133/88 mm[Hg] Bernice Dalton [employer] 16:06:30 Social History Question Answer Notes LastModified by Organizat ion Details LastModified Time Tobacco Smoking Status Former Smoker Bernicecally Dalton oscar [employer] 08/27/2024 11:08:12 Do You Have An Advance [...] Information not available 08/27/2024 What Type Of Cash Management Associate Do You Use? None Information not available [...] Do You Have A Medical Power Of Pharmaceutical Laboratory Technician? No Information not available 08/27/2024 What Was [...] History Nothing Reported. Medical History Condition Response Anxiety Disorder Y Depression Y Immunizations Vaccine Type Date Status Note Provider Nam e and Address Organization Details Recorded Time MMR 6 completed Not Available [facility] 11/17/2024 15:59:51 DTP-Hib 6 completed Not Available [facility] 11/17/2024 15:59:51 Hep B, unspecified formulation 6 completed Not Available [facility] 11/17/2024 15:59:51 varicella 7 completed Not Available [facility] 11/17/2024 15:59:51 DTaP, unspecified formulation 9 completed Not Available [facility] 11/17/2024 15:59:51 MMR 9 completed Not Available [facility] 11/17/2024 15:59:51 OPV, trivalent 9 completed Not Available [facility] 11/17/2024 15:59:51 Tdap 7 completed Not Available [facility] 11/17/2024 15:59:51 COVID-19, mRNA, LNP-S, PF, 100 mcg/0.5mL dose or 50 mcg/0.25mL dose 2 completed Not Available [facility] 11/17/2024 15:59:51 Influenza, MDCK, quadrivalent, PF 2 completed Not Available [facility] 11/17/2024 15:59:51 Influenza, split virus, quadrivalent, PF 3 completed Not Available [facility] 11/17/2024 15:59:51 Past Encounters Encounter ID Performer Location Encounter Start Date Encounter Closed Date Diagnosis/Indication Diagnosis SNOMED-CT Code Diagnosis ICD10 Code Diagnosis IMO Codes Diagnosis Note [id number] Violette Stone, HOSPITAL AIDE [address] [place] [address] 11/17/2024 15:58:57 11/17/2024 17:09:05 Obesity 775325804 E66.9 82805341 Harmful pa ttern of use of alcohol 24688889 F10.10 13191 Body mass index 30+ - obesity 720625152 Z68.33 243000 Health Concerns Section Related Observation LastModified by Organization Detai ls LastModified Time None Recorded Concern Status LastModified by Organization Details LastModified Time None Recorded Payers Encounter Date Sequence Insurance Name Policy Number Policy Pereyra Covered Member ID Pereyra Member ID Guarantor Name 11/17/2024 1 FOR LIFE () Roge Boonejudy [id number] Roge Kapadia Notes Date Note Type Note Provider Name and Address Organization Details Recorded Time 11/17/2024 text/html pt here today requesting ozempic [...] taking l[facility]ep[facility] that is [facility]. states that he is not doing any [facility] the [facility] (pt did not ever bring back MHI packet) and states that he still continues to drink ETOH daily. pt is very solium, hands have a tremor, takes a while for pt to answer questions. Violette Vila APRN [address] [facility], [place], [address], [facility] - [employer] 11/17/2024 16:46:32
[2024-12-19] MEDS: LIDOCAINE 1% 10ML MDV 10 ML SUBCUT (15:46)
[2024-12-19] MEDS: TET/DIPHTH/PERT-ADULT 0.5ML SYRINGE 0.5 ML IM (15:48)
--- NOTE | 2024-12-19 16:15 | HMH.EDGENADL ---
Discharge Plan Disposition Patient Disposition: Home, Self-Care Condition: Good Prescriptions Prescriptions: No Action olanzapine 5 mg Tablet 5 mg PO DAILY lorazepam 2 mg Tablet 4 mg PO DAILY PRN (Reason: Anxiety) amoxicillin 875 mg tablet 875 mg PO Q12H Qty: 20 0RF methylprednisolone 4 mg Tablets,Dose Pack 4 mg PO DIRECTED 6 Days Qty: 21 0RF Rx Instructions: Take 1 pack as directed for 6 days Referrals Follow up/Referrals: Provider,Referral, MD [Primary Care Provider, Medical] - See instructions Activity Restrictions/Add. Instructions Additional Instructions/Restrictions: Please put bacitracin ointment on your wound daily. You can wash your stitches with warm soap and water. Do not submerge the laceration underneath water; no lakes, pools, ponds, or hot tubs. If you develop streaking redness or drainage of pus please come back to the emergency department promptly. If you develop diffuse swelling of the forearm with limitation of movement of the hands or fingers please also return to the emergency department. Otherwise I want you to see your primary care doctor, urgent care, or the emergency department in 7 to 10 days to have stitches removed Clinical Impressions Clinical Impression: Forearm laceration Qualifiers: Encounter type: initial encounter Laterality: left Qualified Code(s): S51.812A - Laceration without foreign body of left forearm, initial encounter Instructions Patient Instructions: DI for Laceration Repair Print Language Print Language: Liberian Discharge ED Provider: Leroy Horton Adult HPI General Chief complaint: Wound/Laceration Stated complaint: A/O 12/18 cut in left arm Time Seen by Provider: 12/19/24 15:13 Mode of Arrival: Ambulatory Source of Information: Patient Description of Symptoms (Recalled from ER Triage Doc. by RN): patient presents to the ED for a laceration to the left forearm after working on a fourwheeler. patient stated this happened last night but the bleeding just wont stop. History of Present Illness HPI narrative: Is a 29-year-old male patient, with no significant past medical history, who is presented to the emergency department today for evaluation of a left forearm laceration. Patient states that he was working with a 4 haas and lacerated his arm on a piece of metal attached to the 4 haas. He states that he has not had any difficulty with movement of his fingers or sensory deficits in the fingers or forearm. He states the wound has been relatively hemostatic since it occurred. Related Data Home Medications ?Medication ?Instructions ?Recorded ?Confirmed lorazepam 2 mg tablet 4 mg PO DAILY PRN Anxiety 10/29/23 10/29/23 olanzapine 5 mg tablet 5 mg PO DAILY 10/29/23 10/29/23 Previous Rx's ?Medication ?Instructions ?Recorded amoxicillin 875 mg tablet 875 mg PO Q12H #20 tabs 10/29/23 methylprednisolone 4 mg tablets in 4 mg PO DIRECTED 6 days #21 tabs 10/29/23 a dose pack Allergies Allergy/AdvReac Type Severity Reaction Status Date / Time chlorpheniramine (From Allergy Verified 07/17/21 12:05 Cardec (phenylephrin-chlorphn)) erythromycin base Allergy Verified 07/17/21 12:05 phenylephrine (From Cardec Allergy Verified 07/17/21 12:05 (phenylephrin-chlorphn)) [facility] Disclaimer: The information contained in this section may have been updated after the patient was seen, as this information can be updated by other users. Medical History (Updated 12/19/24 @ 16:15 by Leroy Horton DO) Depression Anxiety Surgical History (Updated 10/29/23 @ 15:55 by Lynsey Chirinos RN) History of tonsillectomy Social History Smoking Status: Never smoker alcohol intake: never current occupational status: other (recently medically discharged from the [place]) Travel in the last 8 weeks?: Inside the [facility] (He came back from [place] on 07/11/2021) Have you lived/traveled outside US in past 30 days?: No Contact w/someone who lives/traveled outside US past 30 days?: No Exposure to someone with infectious disease in past 14 days?: No Do you have a fever (greater than 100.4 F or 38 C)?: No Have you tested positive for COVID-19?: No Exposed to someone with COVID-19 in past 14 days?: No Do you have a sore throat?: No Do you have a cough?: No Do you have any weakness?: No Do you have any diarrhea?: No Are you experiencing any unusual bleeding?: No Do you have any muscle aches/pain?: No Do you have any abdominal pain?: No Are you experiencing loss of taste or smell?: No Other Medical History Have you received the Flu Vaccine for this season: Yes Have you received the Pneumonia Vaccine: No ROS Obtained: Yes Systems reviewed as appropriate & no additional complaints except as documented Physical Exam General General appearance: other (See MDM) Respiratory Respiratory exam: Present other (See MDM) Cardiovascular Cardiovascular exam: Present other (See MDM) Neurological Exam Neurological exam: Present other (See MDM) Medical Decision Making Medical Records Medical records reviewed: Yes I reviewed the patient's medical records. Screening: Per USPSTF and CDC recommendations, given the prevalence of disease in our region, it is our hospital?s policy to screen for HIV and viral Hepatitis for all patients aged 18 and over and those with ongoing risk factors. Bk Inquiry Pt receiving controlled substance: No Bk was queried for this patient: No Vital Signs: 12/19/24 14:54 Temperature 98.2 F Temperature Source Oral Pulse Rate [Right Radial] 81 Respiratory Rate 18 Blood Pressure [Right Arm] 186/118 H Blood Pressure Mean [Right Arm] 140 Blood Pressure Source [Right Arm] Automatic Cuff Blood Pressure Position [Right Arm] Sitting 02 Sat by Pulse Oximetry 100 Oxygen Delivery Method Room Air Orders (Tests/Meds): ED MEDICATIONS Generic Name Dose Route Start Last Admin Trade Name Freq PRN Reason Stop Dose Admin Bacitracin 1 gm 12/19/24 16:14 Bacitracin Zinc Oint 30gm Tube TP 12/19/24 16:15 ONCE ONE Discontinued Medications Generic Name Dose Route Start Last Admin Trade Name Freq PRN Reason Stop Dose Admin Lidocaine HCl 10 ml 12/19/24 15:39 12/19/24 15:46 Lidocaine 1% 10ml Mdv SUBCUT 12/19/24 15:40 10 ml ONCE ONE Administration Tetanus/Reduced Diphtheria/Acell Pertussis 0.5 ml 12/19/24 15:33 12/19/24 15:48 Tet/Diphth/Pert-Adult 0.5ml Syringe IM 12/19/24 15:34 0.5 ml .ONCE ONE Administration Medical Decision Narrative: In summary this is a 29-year-old male patient who is presented to the emergency department today for evaluation of a left forearm laceration. This occurred from a piece of metal that was attached to a 4 haas. This patient has no comorbidities that would complicate their medical management or care. On initial evaluation of the patient they were resting comfortably in no acute distress and nontoxic in appearance. They are hemodynamically stable, saturating well room air, and are neurologically intact. On physical examination the patient has a 2 cm laceration on the volar aspect of the mid forearm. The wound margins are gaping but the wound is not very deep. I have cleaned this wound out with 1 L of saline and explored the wound depth and margins. There is no violation of muscle or tendon. Wound is hemostatic. Most likely differential is laceration. 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 I have repaired the patient's laceration with 1% lidocaine for analgesia and 4-0 nylon suture. 3 sutures were placed. Patient was administered Tdap vaccination while here in the emergency department as he is not up-to-date and this was likely a contaminated wound from dirty metal on a 4 haas. Patient tolerated laceration repair well. He acknowledges understanding that he should return in 7 to 10 days to have sutures removed. We have given return precautions in the event that he experiences motor or sensory deficits to left upper extremity, streaking redness, or purulent drainage from the wound. At this time all questions have been answered and all parties are agreeable with the decision to discharge home Critical Care Critical Care Time Critical Care Time: No
[2024-12-19] MEDS: BACITRACIN ZINC OINT 30GM TUBE TP (16:23)
[2024-12-19 16:27] VITALS: BP 165/116; PULSE 93; RESP 15; TEMP 36.8; O2SAT 100
== END 2024-12-19 16:27 | disposition home or self-care (01) ==
PROVIDERS: Emergency Provider Student in an Organized Health Care Education/Training Program
DX: S51.812A Laceration without foreign body of left forearm, initial encounter (principal); W26.8XXA Contact with other sharp object(s), not elsewhere classified, initial encounter
CPT/HCPCS: 12001; 90471; 90715; 99283; 99284; J2003